=== PATIENT | female | born 1985 | race Caucasian/White ===

== ENCOUNTER 2016-12-19 17:59 | Emergency (ER) | payer MEDICAID ==
[~2016-12-19] VITALS: Ht 160 cm; Wt 74.8 kg
[~2016-12-19 17:59] MED LIST: BUPR100T6 PO; CYCL-259 PO; ZOLP10TA PO
[2016-12-19] MEDS ORDERED: FAMOTIDINE 20 MG/2 ML ONE (18:25)
[2016-12-19] MEDS ORDERED: ONDANSETRON 2MG/ML, 2ML ONE (18:25)
[2016-12-19] MEDS ORDERED: ONDANSETRON 2MG/ML, 2ML IVPush ONE (18:30)
[2016-12-19] MEDS ORDERED: FAMOTIDINE 20 MG/2 ML IVP ONE (18:30)
[2016-12-19] MEDS ORDERED: SODIUM CHLORIDE 0.9% 1,000ML IVBOLUS ONE (18:30)
[2016-12-19 18:44] LABS: ASPARTATE AMINO TRANSFERASE 22 U/L (15-37); BLOOD UREA NITROGEN 14 mg/dL (7-18)
[2016-12-19] MEDS ORDERED: MAALOX/HYOSCYAMINE/LIDOCAINE 45 ML BOTTLE PO ONE (19:30)
[2016-12-19] MEDS ORDERED: MAALOX/HYOSCYAMINE/LIDOCAINE 45 ML BOTTLE ONE ×2 (19:52→19:54)
[2016-12-19 19:59] VITALS: BP 112/59
== END 2016-12-19 20:03 | disposition home or self-care (01) ==
LOC: ED 18:22
DX: K29.20 Alcoholic gastritis without bleeding (principal); R10.13 Epigastric pain; R11.2 Nausea with vomiting, unspecified
CPT/HCPCS: 36415; 80053; 83690; 84703; 85025; 96361; 96374; 96375; 99284; J2405; J7030; S0028

== ENCOUNTER 2017-05-12 11:06 | Emergency (ER) | payer SELFPAY ==
[~2017-05-12] VITALS: Ht 160 cm; Wt 72.7 kg
[2017-05-12 11:17] VITALS: BP 114/76
== END 2017-05-12 12:15 | disposition home or self-care (01) ==
LOC: ED 11:37
DX: M54.32 Sciatica, left side (principal)
CPT/HCPCS: 99283

== ENCOUNTER 2017-11-03 19:41 | Emergency (ER) | payer OTHER ==
[~2017-11-03] VITALS: Ht 160 cm; Wt 81.9 kg
[2017-11-03 20:16] LABS: BASOPHILS # (AUTO) 0.04 x10^3/uL (0-0.1); BASOPHILS % (AUTO) 0 % (0-1); EOSINOPHILS # (AUTO) 0.17 x10^3/uL (0-0.4); EOSINOPHILS % (AUTO) 2 % (1-7); LYMPHOCYTES # (AUTO) 1.46 x10^3/uL (1-3.4); LYMPHOCYTES % (AUTO) 15 % (22-44); MD NO; MEAN CORPUSCULAR HEMOGLOBIN 31.5 pg (27.0-34.8); MEAN CORPUSCULAR VOLUME 92.6 fL (80-100); MEAN PLATELET VOLUME 7.3 fL (7.4-10.4); MONOCYTES % (AUTO) 7 % (2-9); NEUTROPHILS # (AUTO) 7.64 x10^3/uL (1.8-6.8); NEUTROPHILS % (AUTO) 76 % (42-75); PLATELET COUNT 299 x10^3/uL (130-400); RED BLOOD COUNT 4.61 x10^6/uL (3.82-5.3); RED CELL DISTRIBUTION WIDTH 13.8 % (9.6-15.2)
[2017-11-03 20:27] LABS: ANION GAP 10 mmol/L (5-15); CALCIUM 8.4 mg/dL (8.5-10.1); CHLORIDE 110 mmol/L (98-107); CREATININE 1.14 mg/dL (0.55-1.02)
[2017-11-03] MEDS ORDERED: KETOROLAC 30 MG/1 ML ONE (20:54)
[2017-11-03] MEDS ORDERED: MORPHINE SULFATE 4 MG/ML, 1ML ONE (20:55)
[2017-11-03 21:00] LABS: MICROSCOPIC AUTO
[2017-11-03] MEDS ORDERED: KETOROLAC 30 MG/1 ML IVPush ONE (21:00)
[2017-11-03] MEDS ORDERED: morphine SULFATE 10 MG/ML, 1ML IVPush ONE (21:00)
[2017-11-03 21:02] LABS: CULTURE INDICATED? YES
[2017-11-03] MEDS ORDERED: CEFTRIAXONE PMX 1GM/50ML 50 ML ONE (21:51)
[2017-11-03 21:57] VITALS: BP 114/70
[2017-11-03] MEDS ORDERED: CEFTRIAXONE PMX 1GM/50ML 50 ML IV ONE (22:00)
== END 2017-11-03 23:08 | disposition home or self-care (01) ==
LOC: ED 23:02
DX: N30.01 Acute cystitis with hematuria (principal); Z87.442 Personal history of urinary calculi
CPT/HCPCS: 36415; 74176; 80048; 81001; 82040; 84703; 85025; 87086; 96365; 96375; 99285; J0696; J1885; J2270

== ENCOUNTER 2018-05-09 15:04 | Emergency (ER) | payer OTHER ==
[~2018-05-09] VITALS: Ht 160 cm; Wt 83.4 kg
[2018-05-09 15:46] LABS: MICROSCOPIC AUTO
[2018-05-09] MEDS ORDERED: ONDANSETRON ODT 4 MG ONE (15:54)
[2018-05-09] MEDS ORDERED: KETOROLAC 30 MG/1 ML ONE (15:55)
[2018-05-09] MEDS ORDERED: DIAZEPAM 5 MG TABLET ONE (15:55)
[2018-05-09] MEDS ORDERED: ONDANSETRON ODT 4 MG PO ONE (16:00)
[2018-05-09] MEDS ORDERED: DIAZEPAM 5 MG TABLET PO ONE (16:00)
[2018-05-09] MEDS ORDERED: KETOROLAC 30 MG/1 ML IM ONE (16:00)
[2018-05-09] MEDS ORDERED: HYDROcodone/APAP 5/325 TABLET PO ONE (16:00)
[2018-05-09] MEDS ORDERED: HYDROcodone/APAP 5/325 TABLET ONE (16:00)
[2018-05-09 16:44] VITALS: BP 94/56
== END 2018-05-09 17:09 | disposition home or self-care (01) ==
LOC: ED 16:48
DX: S39.012A Strain of muscle, fascia and tendon of lower back, initial encounter (principal); X50.0XXA Overexertion from strenuous movement or load, initial encounter; X50.9XXA Other and unspecified overexertion or strenuous movements or postures, initial encounter; Y93.89 Activity, other specified; Y92.89 Other specified places as the place of occurrence of the external cause; Y99.8 Other external cause status; M54.16 Radiculopathy, lumbar region
CPT/HCPCS: 72110; 81001; 93005; 96372; 99285; J1885; J7512; Q0162

== ENCOUNTER 2018-07-30 01:16 | Emergency (ER) | payer OTHER ==
[~2018-07-30] VITALS: Ht 162.6 cm; Wt 74.0 kg
[2018-07-30 01:23] VITALS: BP 122/78
--- NOTE | 2018-07-30 01:42 | NUR ---
assessment made. chart up for MD to see.
--- NOTE | 2018-07-30 01:47 | NUR ---
PA at bedside.
--- NOTE | 2018-07-30 01:55 | NUR ---
patient to X ray.
[2018-07-30] MEDS ORDERED: PROMETHAZINE/COD. 10MG/6.25MG/5 ML ORAL SOL PO ONE (02:00)
--- NOTE | 2018-07-30 02:08 | NUR ---
back from Xray. medicated for cough. ERP at bedside.
--- NOTE | 2018-07-30 02:38 | NUR ---
patient discharged with prescriptions and instruction. verbalized understanding.
== END 2018-07-30 02:40 | disposition home or self-care (01) ==
LOC: ED 01:48
DX: B34.9 Viral infection, unspecified (principal); G62.9 Polyneuropathy, unspecified
CPT/HCPCS: 71046; 99283

== ENCOUNTER 2019-02-05 18:05 | Emergency (ER) | payer OTHER ==
[~2019-02-05] VITALS: Ht 160 cm; Wt 71.0 kg
[2019-02-05 20:59] VITALS: BP 106/63
== END 2019-02-05 22:28 | disposition home or self-care (01) ==
LOC: ED 22:12
DX: S16.1XXA Strain of muscle, fascia and tendon at neck level, initial encounter (principal); S29.012A Strain of muscle and tendon of back wall of thorax, initial encounter; M25.511 Pain in right shoulder; V49.49XA Driver injured in collision with other motor vehicles in traffic accident, initial encounter; Y93.89 Activity, other specified; Y92.410 Unspecified street and highway as the place of occurrence of the external cause; Y99.8 Other external cause status
CPT/HCPCS: 36415; 72072; 72125; 80048; 82040; 84703; 85025; 93005; 99284

== ENCOUNTER 2019-02-13 23:49 | Emergency (ER) | payer OTHER ==
[~2019-02-13] VITALS: Ht 160 cm; Wt 75.0 kg
[2019-02-14 00:33] VITALS: BP 105/54
== END 2019-02-14 04:29 | disposition home or self-care (01) ==
LOC: ED 02-14 00:18
DX: R10.84 Generalized abdominal pain (principal); R11.2 Nausea with vomiting, unspecified; R19.7 Diarrhea, unspecified; E86.0 Dehydration
CPT/HCPCS: 36415; 74177; 80053; 81003; 83690; 84703; 85025; 93005; 96360; 96372; 99284; J2550; J7030; Q9967